=== PATIENT | female | born 1945 | race Two or more races ===

== ENCOUNTER 2018-09-04 04:39 | Emergency (ER) | payer OTHER, MEDICAID ==
[~2018-09-04] VITALS: Ht 152.4 cm; Wt 74.8 kg
[2018-09-04] MEDS ORDERED: ONDANSETRON HCL/PF - ER 4 MG/2 ML VIAL IV ONE (05:00)
[2018-09-04] MEDS ORDERED: HYDROMORPHONE 1 MG/1 ML DISP.SYRIN IV ONE (05:00)
--- NOTE | 2018-09-04 05:00 | NUR ---
BOARD WINDER AT BEDSIDE FOR BLOOD DRAW
--- NOTE | 2018-09-04 05:00 | NUR ---
PT BIBSELF C/O GENERALIZED ABDOMINAL PAIN, WORSE RLQ X3 DAYS. PT WAS RECENTLY SEEN AT [facility] X3 DAYS AGO AND WAS DISCHARGED. 88% RA, PLACED ON 2L NC AND TOLERATED WELL O2 SAT NOW 97%. PT AAOX4. RESPIRATIONS EVEN AND UNLABORED. NO ACUTE DISTRESS NOTED AT THIS TIME. PT PLACED ON MONITOR, WILL CONTINUE TO MONITOR.
[2018-09-04 05:03] LABS: BASOPHILS # (AUTO) 0.1 /CMM (0.0-0.2); BASOPHILS % (AUTO) 0.4 % (0.0-2.0); EOSINOPHILS % (AUTO) 0.5 % (0.0-6.0); HEMATOCRIT 39 % (33-45); HEMOGLOBIN 13.5 g/dL (11.5-14.8); LYMPHOCYTES # (AUTO) 17.5 /CMM (0.8-4.8); LYMPHOCYTES % (AUTO) 82.6 % (20.0-44.0); MEAN CORPUSCULAR HGB CONC 34 g/dl (31.0-36.0); MEAN CORPUSCULAR VOLUME 90 fL (82-100); MONOCYTES # (AUTO) 0.6 /CMM (0.1-1.30); MONOCYTES % (AUTO) 2.8 % (2.0-12.0); NEUTROPHILS # (AUTO) 2.9 /CMM (1.8-8.9); NEUTROPHILS % (AUTO) 13.7 % (43.0-81.0); PLATELET COUNT (AUTO) 143 /CMM (150-450); WHITE BLOOD COUNT (AUTO) 21.1 K/uL (4.3-11.0)
[2018-09-04] MEDS ORDERED: HYDROMORPHONE INJ 0.5 MG/0.5 ML SYRINGE ONE (05:08)
[2018-09-04] MEDS ORDERED: ONDANSETRON HCL/PF 4 MG/2 ML VIAL ONE (05:09)
[2018-09-04 05:12] LABS: CALCIUM, SERUM 9.2 mg/dL (8.5-10.1); CARBON DIOXIDE 26 mmol/L (21-32); CHLORIDE 102 mmol/L (98-107); GLUCOSE 168 mg/dL (74-106); POTASSIUM 3.9 mmol/L (3.5-5.1); SODIUM SERUM 139 mmol/L (136-145); UREA NITROGEN, BLOOD 11 mg/dL (7-18)
[2018-09-04 05:18] LABS: ALANINE AMINOTRANSFERASE 66 U/L (12-78); ALKALINE PHOSPHATASE 71 U/L (46-116); ASPARTATE AMINOTRANSFERASE 77 U/L (15-37); BILIRUBIN,DIRECT 0.2 mg/dL (0.0-0.2); BILIRUBIN,TOTAL 0.9 mg/dL (0.2-1.0); LIPASE 167 U/L (73-393); TOTAL PROTEIN, SERUM 7.6 g/dL (6.4-8.2)
--- NOTE | 2018-09-04 05:45 | NUR ---
URINE COLLECTED AND SENT TO LAB
[2018-09-04 06:11] LABS: APPEARANCE,URINE SL CLOUDY (CLEAR); BILIRUBIN,URINE NEGATIVE (NEGATIVE); BLOOD, URINE NEGATIVE Ery/uL (NEGATIVE); COLOR,URINE YELLOW (YELLOW); KETONES,URINE 1+ (NEGATIVE); LEUKOCYTE ESTERASE ,URINE 1+ (NEGATIVE); NITRITE, URINE NEGATIVE (NEGATIVE); PROTEIN,URINE NEGATIVE (NEGATIVE); UGLUCOSE NEGATIVE (NEGATIVE); UROBILINOGEN,URINE 0.2 EU/dL (0.2)
[2018-09-04 06:22] LABS: BACTERIA,URINE Few /HPF (None Seen); MUCUS,URINE Few /LPF (None Seen); RBC,URINE 0-2 /HPF (0-2); URINE AMORPHOUS URATE Few /HPF (None Seen)
--- NOTE | 2018-09-04 07:04 | NUR ---
Call from [facility]. Pt accepted to [facility] ER by Dr AGUILAR. # for report [phone]. [facility] for [facility]LS ambulance [id number].
--- NOTE | 2018-09-04 07:14 | NUR ---
GAVE REPORT TO CARMEN WHITAKER FOR [facility]
--- NOTE | 2018-09-04 07:14 | NUR ---
PT RESTING COMFORTABLY IN BED. VITAL SIGNS STABLE. NO ACUTE DISTRESS NOTED AT THIS TIME. PT STILL ON MONITOR, WILL CONTINUE TO MONITOR
--- NOTE | 2018-09-04 07:40 | NUR ---
GAVE REPORT TO CHANDNI ALTMAN FOR [facility]
--- NOTE | 2018-09-04 08:24 | NUR ---
RECEIVED REPORT TO TIKA JASSO FOR [facility]. PT IS AAOX4, NOT IN RESPIRATORY DISTRESS, V/S STABLE, AWAITING TRANSPORT FOR TRANSFER TO [facility].
--- NOTE | 2018-09-04 09:10 | NUR ---
REPORT GIVEN TO EMT TRANSPORT.
[2018-09-04 09:11] VITALS: BP 141/65
== END 2018-09-04 09:13 | disposition short-term general hospital (02) ==
LOC: ER 04:39
DX: R10.84 Generalized abdominal pain (principal); I10 Essential (primary) hypertension; E11.9 Type 2 diabetes mellitus without complications; G89.29 Other chronic pain; Z85.6 Personal history of leukemia; Z90.710 Acquired absence of both cervix and uterus; Z88.6 Allergy status to analgesic agent; Z88.5 Allergy status to narcotic agent
CPT/HCPCS: 36415; 80048-TC; 80076-TC; 81000-TC; 83605-TC; 83690-TC; 84484-TC; 85025-TC; 85730-TC; 87086-TC; J2405